=== PATIENT | male | born 1995 | race Two or more races ===

== ENCOUNTER 2017-12-25 20:45 | Emergency (ER) | payer SELFPAY ==
[~2017-12-25] VITALS: Ht 185.4 cm; Wt 87.1 kg
--- NOTE | 2017-12-25 20:59 | NUR ---
[id number] FOR WITNESSED SEIZURE TONIC-CLONIC IN FRONT OF RESTAURANT, +ORAL TRAUMA, BG 122 IN FIELD. PT AOX3 RR EVEN AND UNLABORED. NO SOB NOTED. NAD NOTED. NO VND AT THIS TIME. PT GOWNED AND PLACED ON MONITOR. DR. MICHAEL AT BEDSIDE. PER RA PLACED IV ON LEFT AC 18G H/L. INTACT NO S/S INFECTION.
--- NOTE | 2017-12-25 20:59 | NUR ---
Note undone in EDM - 12/25/17 at 2135 by AR [id number] FOR WITNESSED SEIZURE TONIC-CLONIC IN FRONT OF RESTAURANT, +ORAL TRAUMA, BG 122 IN FIELD. PT AOX3 RR EVEN AND UNLABORED. NO SOB NOTED. NAD NOTED. NO VND AT THIS TIME. PT GOWNED AND PLACED ON MONITOR. DR. MICHAEL AT BEDSIDE. PER RA PLACED IV ON LEFT AC 20G H/L. INTACT NO S/S INFECTION.
[2017-12-25] MEDS ORDERED: LEVETIRACETAM (500MG) 1,000 MG in IV NS 0.9% 100 ML IV SCH (21:00)
[2017-12-25] MEDS ORDERED: IV NS 0.9% 1,000 ML BAG IV ONE (21:00)
[2017-12-25 21:01] LABS: BASOPHILS # (AUTO) 0.4 /CMM (0.0-0.2); BASOPHILS % (AUTO) 3.4 % (0.0-2.0); EOSINOPHILS % (AUTO) 0.5 % (0.0-6.0); HEMATOCRIT 55 % (39-51); HEMOGLOBIN 18.4 g/dL (13.5-17.5); LYMPHOCYTES # (AUTO) 2.4 /CMM (0.8-4.8); LYMPHOCYTES % (AUTO) 20.5 % (20.0-44.0); MEAN CORPUSCULAR HGB CONC 33 g/dl (31.0-36.0); MEAN CORPUSCULAR VOLUME 87 fL (80-96); MONOCYTES # (AUTO) 1.3 /CMM (0.1-1.30); MONOCYTES % (AUTO) 11.2 % (2.0-12.0); NEUTROPHILS # (AUTO) 7.7 /CMM (1.8-8.9); NEUTROPHILS % (AUTO) 64.4 % (43.0-81.0); PLATELET COUNT (AUTO) 294 /CMM (150-450); RDW COEFFICIENT OF VARIATION 12.4 (11.5-15.0); RED BLOOD CELL COUNT(AUTO) 6.37 MIL/uL (4.5-6.0); WHITE BLOOD COUNT (AUTO) 11.9 K/uL (4.3-11.0)
[2017-12-25 21:10] LABS: ALCOHOL, BLOOD < 3 mg/dL (0-0); CALCIUM, SERUM 9.4 mg/dL (8.5-10.1); CARBON DIOXIDE 22 mmol/L (21-32); CHLORIDE 102 mmol/L (98-107); CREATININE 1.8 mg/dL (0.6-1.3); GLUCOSE 120 mg/dL (74-106); POTASSIUM 5.1 mmol/L (3.5-5.1); SODIUM SERUM 141 mmol/L (136-145); UREA NITROGEN, BLOOD 11 mg/dL (7-18)
--- NOTE | 2017-12-25 21:13 | NUR ---
PT REFUSED CT SCAN AT THIS TIME. RISK AND BENEFITS EXPLAINED X3. PT STRONGLY REFUSED. DR. MICHAEL AT BEDSIDE
[2017-12-25] MEDS ORDERED: LEVETIRACETAM (500MG) 500 MG/5 ML VIAL IV ONE (21:31)
--- NOTE | 2017-12-25 22:10 | NUR ---
IV removed. Catheter intact and site benign. Pressure and 4x4 applied to site. No bleeding noted. Patient discharged to home in stable condition. Written and verbal after care instructions given. Patient verbalizes understanding of instruction. ambulatory with a steady gait Patient does not wish to proceed with medical care recommended by Dr. Andrews. Patient given information related to possible complications, up to and including , which could occur as a result of leaving the hospital at this time. Patient verbalizes understanding of risks involved due to leaving against medical advice. Patient has signed AMA form.
--- NOTE | 2017-12-25 22:12 | NUR ---
PT HAS SIGNED AMA. PT ABLE TO WALK WITH STEADY GAIT AND UNDERSTANDS RISKS/BENEFITS OF LEAVING
[2017-12-25 22:13] VITALS: BP 132/69
== END 2017-12-25 22:14 | disposition left against medical advice (07) ==
LOC: ER 20:46
DX: R56.9 Unspecified convulsions (principal); N28.9 Disorder of kidney and ureter, unspecified; R00.0 Tachycardia, unspecified
CPT/HCPCS: 36415; 80048; 85025; 93005; 96365; 99285; A4606; G0480; J1953; J7030 ×3; Z7610